=== PATIENT | male | born 1975 | race Caucasian/White ===

== ENCOUNTER 2018-04-21 19:58 | Emergency (ER) | payer MEDICARE, OTHER, SELFPAY ==
[2018-04-21] VITALS (53 sets, daily range): BP systolic 69–155; BP diastolic 23–109; PULSE 65–113; RESP 9–23; TEMP 37.2; O2SAT 92–99
--- NOTE | 2018-04-21 20:08 | DI.COMBO_ITS ---
SYMPTOM/DIAGNOSIS: CHEST HEAVINESS, ? DISSECTION, SEVERE CHEST PAIN PORTABLE AP CHEST: There are no prior comparison exams. The heart size is within normal limits. The lungs appear clear throughout. IMPRESSION: Negative portable chest. THORAX CTA: CT angiography was performed with multi slice acquisition and multi planar and 3D reconstruction. The aorta and pulmonary arteries are well opacified with IV contrast. No pulmonary emboli or aortic dissection is seen. The aorta is normal in diameter. There is motion at the aortic root. No pleural or pericardial effusions or infiltrates are seen. There is no evidence of mass or adenopathy. The visualized portion of the upper abdomen is unremarkable. IMPRESSION: Negative chest CTA. No evidence of pulmonary emboli, aortic dissection or other acute abnormality.
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
[2018-04-21] MEDS: Normal Saline 1,000 ML 1000 ML IV (20:22)
[2018-04-21] MEDS: Aspirin 81 MG CHEW 324 MG CH (20:22)
[2018-04-21 20:27] LABS: Abs Immature Grans 0.01 k/cumm (0.0-0.09); HCT 45.6 % (40.0-50.0); HGB 16.1 g/dL (13.5-17.5); Immature Grans % 0.1; Mean Corp. HGB Concentration 35.3 g/dL (32.0-36.0); Mean Corpuscular Hemoglobin 30.1 pg (27.0-33.0); Mean Corpuscular Volume 85.2 fL (80-95); Mean Platelet Volume 11.3 fL (8.0-11.0); Platelet Count 388 x1000/uL (130-400); RBC 5.35 m/cumm (4.50-6.00); RBC Distribution Width 13.4 % (11.8-14.1); White Blood Cell Count 10.46 k/cumm (4.4-10.8)
[2018-04-21 20:41] LABS: PTT Activated 22.6 sec (21.0-31.4); Prothrombin Time 9.9 sec (9.3-11.0)
[2018-04-21 20:43] LABS: Absolute Neutrophil Count 5.54 k/cumm (1.2-6.7); Atypical Lymphocytes % 13
[2018-04-21 20:44] LABS: Absolute Monocyte Count 0.42 k/cumm (0.11-0.7)
[2018-04-21 20:46] LABS: Diff Comment Manual Differential; RBC Morphology Normal
[2018-04-21 20:49] LABS: Troponin I < 0.02 ng/mL (0.00-0.06)
--- NOTE | 2018-04-21 20:49 | DI.VRAD_ITS ---
EXAM: Portable XR Chest, 1 View EXAM DATE/TIME: 04/21/2018 8:09 PM CLINICAL HISTORY: 42 years old, male; Signs and symptoms; Other: Chest heaviness 45 min TECHNIQUE: Portable XR of the chest, 1 view. COMPARISON: No relevant prior studies available. FINDINGS: Lungs: Unremarkable. No consolidation. Pleural space: Unremarkable. No pleural effusion. No pneumothorax. Heart/Mediastinum: Unremarkable. No cardiomegaly. Bones/joints: Unremarkable. IMPRESSION: No acute findings. Dictated and Authenticated by: Remington Irving MD. Ordering:SHANE Benavides MD
[2018-04-21] MEDS: Omnipaque 350 MG/ML 100 ML BTL IJ (20:54)
[2018-04-21 21:02] LABS: ALT 22 U/L (12-78); AST 16 U/L (15-37); Albumin 3.6 g/dL (3.4-5.0); Alkaline Phosphatase 65 U/L (46-116); Anion Gap 9.4 mmol/L (3-11); BUN 10 mg/dL (7-18); Bilirubin, Total 0.2 mg/dL (0.2-1.0); CO2 26.6 mmol/L (21.0-32.0); CREATININE 0.95 mg/dL (0.70-1.30); Calcium 9.1 mg/dL (8.5-10.1); Chloride 105 mmol/L (98-107); Glucose 133 mg/dL (70-100); Potassium 3.5 mmol/L (3.5-5.1); Sodium 141 mmol/L (136-145); Total Protein 6.7 g/dL (6.4-8.2)
[2018-04-21] MEDS: Lidocaine 2% Viscous 15 ML CUP (21:55)
[2018-04-21] MEDS: Mylanta Suspension 30 ML CUP (21:55)
--- NOTE | 2018-04-21 21:55 | DI.VRAD_ITS ---
EXAM: CT Angiography Chest With Contrast EXAM DATE/TIME: 04/21/2018 8:14 PM CLINICAL HISTORY: 42 years old, male; Pain; Chest pain TECHNIQUE: Axial computed tomographic angiography images of the chest with intravenous contrast using CT angiography protocol. All CT scans at this facility use at least one of these dose optimization techniques: automated exposure control; mA and/or kV adjustment per patient size (includes targeted exams where dose is matched to clinical indication); or iterative reconstruction. MIP reconstructed images were created and reviewed. CONTRAST: Contrast Material: 100 ml of [id number]; Contrast Route: iv COMPARISON: SC XR PORTABLE CHEST AP 04/21/2018 8:26 PM FINDINGS: Pulmonary arteries: Normal. No pulmonary emboli. Aorta: Normal. No aortic aneurysm. No aortic dissection. Lungs: Normal. No consolidation. No masses. Pleural space: Normal. No pneumothorax. No pleural effusion. Heart: Normal. No cardiomegaly. No pericardial effusion. Lymph nodes: Unremarkable. No enlarged lymph nodes. Bones/joints: Unremarkable. No acute fracture. Soft tissues: Unremarkable. IMPRESSION: No acute findings in the chest. No evidence of pulmonary embolism, thoracic aortic dissection, or aneurysm. Dictated and Authenticated by: Nancy Zaidi MD. Ordering:SHANE Benavides MD
[2018-04-21] MEDS: Clopidogrel 300 MG TAB PO (23:01)
[2018-04-22] VITALS (26 sets, daily range): BP systolic 104–127; BP diastolic 58–80; PULSE 68–106; RESP 7–24; TEMP 36.7; O2SAT 93–97
--- NOTE | 2018-04-22 00:29 | NUR.NOTE ---
Nursing Note: Assumed care of patient. Pt a&o. states nitro drip is helping keep his chest pain around 1-2 out of 10. no acute distress noted. NSR on nurse monitoring. voiding cyu in urinal. awaiting ambulance to transfer to [facility] [place].
[2018-04-22 00:54] LABS: Troponin I 0.02 ng/mL (0.00-0.06)
--- NOTE | 2018-04-22 01:44 | NUR.NOTE ---
Nursing Note: Pt stable at time of transfer. Pt being transported via ambulance. Nitro and Heparin running. patient in no acute distress. pleasant and cooperative. Updated [facility] [address] that patient was leaving, previous RN Leslie called report.
== END 2018-04-22 01:50 | disposition short-term general hospital (02) ==
PROVIDERS: Student in an Organized Health Care Education/Training Program; Emergency Provider Emergency Medicine
DX: R07.9 Chest pain, unspecified (principal); I10 Essential (primary) hypertension; F17.210 Nicotine dependence, cigarettes, uncomplicated
CPT/HCPCS: 36415; 71275; 80053; 93005; 96361; 96365; 96366; 96368; 99285; 71045; 84484; 85025; 85610; 85730; 93010; J3490